=== PATIENT | male | born 2000 | race Caucasian/White ===

== ENCOUNTER 2022-02-04 15:28 | Emergency (ER) | payer MEDICAID ==
[~2022-02-04] VITALS: Ht 167.6 cm; Wt 66.2 kg
--- NOTE | 2022-02-04 15:57 | NUR ---
STREP A& COVID ELVIN SWABS DONE.
[2022-02-04 15:58] VITALS: BP 118/74
[2022-02-04] MEDS ORDERED: IBUP-2213 PO (17:09)
--- NOTE | 2022-02-04 17:10 | NUR ---
21 y/o male bib self from home, pt presents to ed with c/o sore throat, cough that started yesterday. pt states he has discomfort when swallowing/eating with decreased appetite. denies fever, chills, body aches, shortness of breath, wheezing, difficulty breathing, nausea, vomiting, diarrhea, rash. pt states brother tested positive for covid, but states his at home test was negative today. pt states he is concerned he may have strep throat as he had tonsillitis 3 times over the past 2 years. pmh: denies nka med: dayquil
[2022-02-04] MEDS ORDERED: KETOROLAC 30 MG/ML VIAL IM ONE (17:15)
[2022-02-04 17:30] VITALS: BP 118/74
--- NOTE | 2022-02-04 17:30 | NUR ---
Patient discharged with v/s stable. Written and verbal after care instructions given and explained. Patient alert, oriented and verbalized understanding of instructions. Ambulatory with steady gait. All questions addressed prior to discharge. ID band removed. Patient advised to follow up with PMD. Rx of ibuprofen (sent) given. Patient educated on indication of medication including possible reaction and side effects. Opportunity to ask questions provided and answered.
--- NOTE | 2022-02-04 17:45 | NUR ---
no med reaction at this time, pt given paperwork with copy of strep and jeremías results.
== END 2022-02-04 17:45 | disposition home or self-care (01) ==
LOC: MED 15:28
DX: J02.8 Acute pharyngitis due to other specified organisms (principal); B97.89 Other viral agents as the cause of diseases classified elsewhere; Z20.822 Contact with and (suspected) exposure to COVID-19; Z79.1 Long term (current) use of non-steroidal anti-inflammatories (NSAID)
CPT/HCPCS: 87081; 87426; 96372; 99283; J1885